=== PATIENT | male | born 1965 | race Caucasian/White ===

== ENCOUNTER 2018-02-18 21:55 | Emergency (ER) | payer SELFPAY ==
[~2018-02-18] VITALS: Ht 165.1 cm; Wt 65.0 kg
[~2018-02-18 21:55] MED LIST: CHLOR25 PO; ZANT150T2 PO
[2018-02-18 22:08] VITALS: BP 130/74; PULSE 70; RESP 18; TEMP 98; O2SAT 97
--- NOTE | 2018-02-18 22:14 | PD ---
HPI Chief Complaint: Eye Problems/Injury Time Seen by Provider: 22:13 Travel History International Travel<30 days: No Contact w/Intl Traveler<30days: No Traveled to known affect area: No History of Present Illness HPI 52-year-old male came to the emergency room with history of left eye redness that started yesterday. It is progressively worsening. Patient does not have any pain, blurred vision, itchiness or any other irritation of that eye. No watering or mattering. The family member who is in the room who is translating says that he woke up yesterday morning with the eye red like that. Patient is concerned since he had stroke in the past. He takes one baby aspirin every day for a few years now. Vital signs were stable. Patient does not recall having a violent cough, sneeze, straining, lifting anything heavy or pushing anything heavy. [facility] Past Medical History Narrative Medical List of his past medical, surgical, social and family history is reviewed from the nursing note Cerebrovascular Accident: Yes Diminished Hearing: No Past Surgical History Appendectomy: Yes Cholecystectomy: Yes (2002) Social History Alcohol Use: No Tobacco Use: No Substance Use: No Allergies-Medications (Allergen,Severity, Reaction): Coded Allergies: morphine (Unverified Adverse Reaction, Severe, STS FEELS LIKE HIS HEART WILL STOP BEATING, 02/18/18) Comments List of his allergies reviewed from the nursing note Reported Meds & Prescriptions Reported Meds & Active Scripts Active Thorazine 25 Mg Tab (Chlorpromazine HCl) 25 Mg Tab 25 Mg PO Q6H PRN Zantac (Ranitidine HCl) 150 Mg Tab 150 Mg PO BID 30 Days Narrative Medication List of his home medications reviewed from the nursing note Review of Systems Except as stated in HPI: all other systems reviewed are Neg Eyes: Positive: Redness Physical Exam Narrative GENERAL: Awake, alert, no obvious distress SKIN: Focused skin assessment warm/dry. HEAD: Atraumatic. Normocephalic. EYES: Pupils equal and round. No scleral icterus. No injection or drainage. Left eye subconjunctival hemorrhage from the nasal lower half to the patient in conjunctiva inferior to the cornea. ENT: No nasal bleeding or discharge. Mucous membranes pink and moist. NECK: Trachea midline. No JVD. CARDIOVASCULAR: Regular rate and rhythm. No murmur appreciated. RESPIRATORY: No accessory muscle use. Clear to auscultation. Breath sounds equal bilaterally. GASTROINTESTINAL: Abdomen soft, non-tender, nondistended. Hepatic and splenic margins not palpable. MUSCULOSKELETAL: No obvious deformities. No clubbing. No cyanosis. No edema. NEUROLOGICAL: Awake and alert. No obvious cranial nerve deficits. Motor grossly within normal limits. Normal speech. PSYCHIATRIC: Appropriate mood and affect; insight and judgment normal. Data Data Last Documented VS Vital Signs Date Time Temp Pulse Resp B/P (MAP) Pulse Ox O2 Delivery O2 Flow Rate FiO2 02/18/18 22:08 98.0 70 18 130/74 (92) 97 Orders Orders Ed Discharge Order (02/18/18 22:23) [facility] Medical Decision Making Medical Screen Exam Complete: Yes Emergency Medical Condition: Yes Medical Record Reviewed: Yes Differential Diagnosis Subconjunctival hemorrhage Narrative Course 10:30 PM patient was reassured. I answered all the questions to the best of my ability. He will be discharged home on instructions. I discussed these instructions with the family who translated to the patient. They are comfortable. Procedures EKG Prior to Arrival: No Diagnosis Primary Impression: Subconjunctival hemorrhage of left eye Referrals: [facility] Additional Instructions: The bleeding will get better as the time progresses. Give it few days. You should have your blood pressure checked twice a day if possible in morning and evening and keep a diary of it. Take that to your primary care if the blood pressure is running high. Return to the ER if condition worsens or any other new concerns. Hold the aspirin for next 2 days. Follow-up with [facility] who was address has been provided to you on this discharge instruction if you do not have a primary care physician. Med/Other Pt SpecificInfo: No Change to Meds Disposition: 01 DISCHARGE HOME Condition: Stable Celio Garces MD February 18, 2018 22:14
== END 2018-02-18 22:51 | disposition home or self-care (01) ==
LOC: NEPD 21:55
DX: H11.32 Conjunctival hemorrhage, left eye (principal)
CPT/HCPCS: 99281